=== PATIENT | male | born 1960 | race Caucasian/White ===

== ENCOUNTER → 2016-09-13 | Outpatient (CLI) | payer MEDICARE, OTHER | LOC: LABWHC1 07:09 | PROVIDERS: ATTEND Psychiatry & Neurology Neurology | DX: G40.209 Localization-related (focal) (partial) symptomatic epilepsy and epileptic syndromes with complex partial seizures, not intractable, without status epilepticus (principal) | CPT/HCPCS: 36415; 80185 ==

== ENCOUNTER → 2017-06-11 | Outpatient (CLI) | payer MEDICARE ==
--- NOTE | 2017-06-15 06:45 | PE ---
EXAMINATION TYPE: PET CT fusion skull to thigh DATE OF EXAM: 06/11/2017 COMPARISON: MRI lumbar spine April 15, 2017. HISTORY: Metastatic liver carcinoma per order. Cancer diagnosed on liver biopsy April 29. TECHNIQUE: Following the intravenous administration of 14.48 mCi of F-18 FDG, whole body images are performed from the skull base to the midthigh. Images are reviewed on the computer in the coronal, a xial, and sagittal planes. Reconstructed rotating images are created on independent workstation and reviewed on the computer. A noncontrast CT is performed in conjunction with the PET scan. SCAN: Initial Scan FINDINGS: SKULL BASE AND NECK: Posterior superior cheek level there is 1.6 x 0.9 cm hypermetabolic metastatic lesion on axial image 19 with max SUV of 5.23. CHEST, MEDIASTINUM, AND HILAR REGION: There is a spiculated 1.7 x 1.1 cm lesion posterior left lung apex with mild hypermetabolic uptake, max SUV of 2.78 on axial image 80. There appears to be abnormal subcentimeter hypermetabolic focus possible paraesophageal lymph node ec centric esophageal wall thickening on axial image 142, max SUV is 3.1. ABDOMEN AND PELVIS: There are multiple large hypermetabolic liver masses. Lesion left hepatic lobe me asures 7.5 cm on long axis axial image 171. This has peripheral hypermetabolic activity, max SUV is 8 .86. Largest lesion inferior right hepatic lobe measures 10.8 cm on long axis axial image 184. Max MCDONALD V is 7.31. Patient has very little intra-abdominal fat making evaluation suboptimal. There is suspected left adr enal mass on axial image 171 measuring 2.6 x 2.0 cm, max SUV is 5.00. Near this level there is 2 cm hypermetabolic focus left kidney, max SUV is 10.69 on axial image 180. There is suspected superior celiac axis adenopathy with confluent low dense lymph nodes measuring rou ghly 3.1 x 2.4 cm axial image 171, max SUV is 7.05. There is adjacent left lumbar oval hypermetabolic lesion or adenopathy measuring 2.1 x 1.3 cm axial i mage 216 with max SUV of 4.98. There is large soft tissue partially calcified mass anterior femur with soft tissue component measuri ng 6.4 x 3.9 cm on axial image 274, max SUV is 9.32 OSSEOUS STRUCTURES: There are multiple hypermetabolic osseous metastatic lesions identified. There ar e lesions in bilateral humeral heads near axial image 70. Cervical lesions are present. There is larg e right cervical sclerotic hypermetabolic lesion on axial image 55. There is right inferolateral scap ular lesion with mottled appearance on CT near axial image 114. There are bilateral rib lesions felt present. There is probable left lumbar lesion on axial image 189 near pedicle. This is not well ident ified on recent MRI. There is right sacral lesion axial image 226. There is right anterior acetabular lesion. There is small right proximal femoral lesion on axial image 260. There is larger left femora l lesion near soft tissue lesion. OTHER CT: There is anterior fusion plate in the cervical spine noted. There is moderate to advanced emphysematous change with left medial basilar consolidation and/or atel ectasis. There is calcified 1.3 cm pleural based nodule medial right lung base on axial image 149. There is redemonstration of 2.5 cm simple appearing cyst medially left kidney on axial image 182. Distended bladder is noted. Dependent density could reflect small stones or retained contrast on axia l image 252. There is mild calcified atherosclerotic change of aorta extending into branch vessels. IMPRESSION: Diffuse hepatic and osseous metastatic disease noted. Suspicious lesions also noted left posterior superior cheek, left lung apex, paraesophageal region possible lymph node, left adrenal gla nd, possible left kidney, left lower abdominal retroperitoneal lesion/adenopathy, and celiac axis yasmani nopathy. Large soft tissue component with large left femoral head lesion noted. Primary source uncert ain.
== END | disposition home or self-care (01) ==
LOC: RADPETMAIN 13:25
PROVIDERS: ATTEND Internal Medicine Hematology & Oncology
DX: C78.7 Secondary malignant neoplasm of liver and intrahepatic bile duct (principal); C79.51 Secondary malignant neoplasm of bone; M79.89 Other specified soft tissue disorders
CPT/HCPCS: 78815; A9552